=== PATIENT | female | born 1990 | race Caucasian/White ===

== ENCOUNTER 2016-12-27 19:48 | Emergency (ER) | payer OTHER ==
[~2016-12-27] VITALS: Ht 170.2 cm; Wt 68.7 kg
[~2016-12-27 19:48] MED LIST: HYDROCODON-ACE1 EAC7 PO; KEFLEX500 MG PO; LESSINA1 EACH PO; Motrin PO; NAPROXEN500 M1 PO; PEN-VEE K,VEET500 MG PO; PYRIDIUM200 MG PO
[2016-12-27 19:51] VITALS: BP 145/80
[2016-12-27] MEDS ORDERED: DOXYCYCLINE HY100 MG PO (21:15)
== END 2016-12-27 21:40 | disposition home or self-care (01) ==
LOC: EME 19:48
PROC: 0H9DXZZ Drainage of Right Lower Arm Skin, External Approach (ICD-10-PCS; principal; 2016-12-27)
DX: L02.413 Cutaneous abscess of right upper limb (principal); F17.200 Nicotine dependence, unspecified, uncomplicated
CPT/HCPCS: 99281; 99284

== ENCOUNTER 2017-01-13 17:35 | Emergency (ER) | payer OTHER ==
[~2017-01-13] VITALS: Ht 170.2 cm; Wt 65.9 kg
[~2017-01-13 17:35] MED LIST changes: +DOXYCYCLINE HY100 MG PO
[2017-01-13] MEDS ORDERED: BACTRIM,SEPT1 TABLET PO (21:38)
[2017-01-13 22:13] VITALS: BP 108/92
== END 2017-01-13 22:14 | disposition home or self-care (01) ==
LOC: EME 17:35
DX: L03.113 Cellulitis of right upper limb (principal); F19.90 Other psychoactive substance use, unspecified, uncomplicated; F17.200 Nicotine dependence, unspecified, uncomplicated
CPT/HCPCS: 99281; 99284